=== PATIENT | male | born 1930 ===

== ENCOUNTER 2017-02-16 12:19 | Observation (INO) | payer MEDICAID, OTHER ==
[2017-02-16] MEDS ORDERED: Sodium Chloride 0.9% 1,000 ML IV STA (13:23)
[2017-02-16] MEDS ORDERED: Sodium Chloride 0.9% 1,000 ML ONE (13:29)
[2017-02-16] MEDS ORDERED: Morphine 4 MG/ML VIAL ONE ×2 (13:29→17:30)
[2017-02-16 13:54] LABS: BASO % 0.3 % (0.0-2.0); EOS # 0.1 K/uL (0.0-0.7); HEMATOCRIT 40.8 % (35.0-51.0); LYMPH # 0.3 K/uL (1.0-4.3); LYMPH % 5.7 % (20.0-40.0); MEAN CORPUSCULAR HEMOGLOBIN 29.6 pg (27.0-31.0); MEAN CORPUSCULAR HGB CONC 32.5 g/dL (33.0-37.0); MEAN PLATELET VOLUME 8.9 fL (7.2-11.7); MONO # 0.6 K/uL (0.0-0.8); MONO % 9.8 % (0.0-10.0); PLATELET COUNT 169 K/uL (130-400); RED CELL DISTRIBUTION WIDTH 13.9 % (11.5-14.5)
[2017-02-16 14:02] LABS: CHLORIDE 92 mmol/L (98-107); POTASSIUM 4.4 mmol/L (3.6-5.2); SODIUM 135 mmol/L (132-148)
[2017-02-16 14:04] LABS: GFR AFRICAN-AMERICAN > 60
[2017-02-16 14:05] LABS: ALB/GLOB RATIO 1.3 (1.0-2.1); ALKALINE PHOSPHATASE 59 U/L (38-126); ALT/SGPT 22 U/L (21-72); AST/SGOT 25 U/L (17-59); BILIRUBIN,TOTAL 0.7 mg/dL (0.2-1.3); BLOOD UREA NITROGEN 18 mg/dL (9-20); CALCIUM 8.7 mg/dl (8.6-10.4); CARBON DIOXIDE 31 mmol/L (22-30); GLUCOSE,RANDOM 107 mg/dL (75-110); TOTAL PROTEIN 6.6 g/dL (6.3-8.3)
--- NOTE | 2017-02-16 14:11 | C.PDOC ---
History Of Present Illness 86-year-old male, PMHx includes Prostate CA (s/p radiation therapy, diagnosed four years ago), and hypertension, presents to the emergency department with complaints of diffuse abdominal pain for the past four days. Pain is intermittent in nature, and described as "severe at times." Patient notes associated nausea w/ non-bilious/non-bloody vomiting. patient denies fevers, chills, shortness of breath, constipation, dysuria, or any other associated symptoms. Of note, family states patient has had this pain for many years, prior to diagnosis of prostate CA; Patient was evaluated in and told he has "inflamed intestines" and unknown "gallbladder problems"; Patient has never been diagnosed in the states. No other complaints at this time. Time Seen by Provider: 02/16/17 13:01 Chief Complaint (Nursing): Abdominal Pain History Per: Patient History/Exam Limitations: no limitations Current Symptoms Are (Timing): Still Present Severity: Moderate Location Of Pain/Discomfort: Diffuse Past Medical History Reviewed: Historical Data, Nursing Documentation, Vital Signs Vital Signs: Last Vital Signs Temp 97.7 F 02/16/17 12:22 Pulse 87 02/16/17 17:15 Resp 20 02/16/17 17:15 BP 141/71 02/16/17 17:15 Pulse Ox 100 02/16/17 17:15 - Medical History PMH: HTN Surgical History: Appendectomy, Tonsillectomy Family History: States: Unknown Family Hx - Social History Hx Alcohol Use: No Hx Substance Use: No - Immunization History Hx Tetanus Toxoid Vaccination: No Hx Influenza Vaccination: No Hx Pneumococcal Vaccination: No Review Of Systems Except As Marked, All Systems Reviewed And Found Negative. Constitutional: Negative for: Fever, Chills Cardiovascular: Negative for: Chest Pain, Palpitations Respiratory: Negative for: Cough, Shortness of Breath Gastrointestinal: Positive for: Vomiting, Abdominal Pain. Negative for: Diarrhea, Constipation Musculoskeletal: Negative for: Back Pain Skin: Negative for: Rash Neurological: Negative for: Weakness, Numbness, Headache, Dizziness Physical Exam - Physical Exam Additional Physical Exam Comments: Constitutional: No acute distress. Thin cachectic male. Head: Normocephalic. Atraumatic. Eyes: PERRL. EOMI ENT: Moist mucous membranes. Neck: Supple. Cardiovascular: Regular rate. Radial pulses 2+ bilaterally. Chest: No tenderness. Respiratory: Clear to auscultation bilaterally. GI: Soft. diffuse tenderness to palpation of abdomen. No rebound/guarding. Back: No CVA tenderness. No midline tenderness. Musculoskeletal: No tenderness or swelling of extremities. Skin: No rash. Neurologic: Alert, no focal deficit. ED Course And Treatment - Laboratory Results Result Diagrams: 02/16/17 13:49 02/16/17 13:49 O2 Sat by Pulse Oximetry: 100 Medical Decision Making Medical Decision Making: Plan: * CT Abd/Pel * CMP, Lipase * CBC * Morphine, IVF, Zofran * Urinalysis * Reassess and Disposition Accession No. : [id number] Patient Name / ID : CARLOS HARP / [id number] Exam Date : 02/16/2017 16:19:53 ( Approved ) Study Comment : Sex / Age : M / 86Y Creator : Naveed Aguiar Dictator : Naveed Aguiar Horse Stud Manager : Recreation Therapist : Naveed Aguiar Approver2 : Report Date : 02/16/2017 17:14:17 My Comment : PROCEDURE: CT Abdomen and Pelvis with contrast HISTORY: abd pain, vomiting COMPARISON: None. TECHNIQUE: Axial and reformatted coronal and sagittal CT images of the abdomen and pelvis were obtained after IV contrast administration. This CT exam was performed using one or more of the following dose reduction techniques: Automated exposure control, adjustment of the mA and/or kv according to patient size, and/or use of iterative reconstruction technique. Contrast dose: 100 mL of Visipaque. Radiation dose: Total exam DLP = 220.97 mGy-cm. FINDINGS: LOWER THORAX: Unremarkable. LIVER: Unremarkable. No gross lesion or ductal dilatation. GALLBLADDER AND BILE DUCTS: Unremarkable. PANCREAS: Unremarkable. No gross lesion or ductal dilatation. SPLEEN: Unremarkable. ADRENALS: Unremarkable. No mass. KIDNEYS AND URETERS: Unremarkable. No hydronephrosis. No solid mass. VASCULATURE: Unremarkable. No aortic aneurysm. BOWEL: Moderately dilated small bowel loops demonstrate diffuse enhancing wall thickening and contains air-fluid level suggestive of small bowel obstruction. The distal small bowel loops are collapsed. The large bowel is also partially collapse. The transitional point is not clear in this study. APPENDIX: There is no evidence of appendicitis. PERITONEUM: Small amount of free fluid in the abdomen and pelvis. LYMPH NODES: Unremarkable. No enlarged lymph nodes. BLADDER: Unremarkable. REPRODUCTIVE: Xozwcd-de-uuvdqagrpj enlarged prostate. BONES: No acute fracture. OTHER FINDINGS: None. IMPRESSION: Findings suggestive of small bowel obstruction. Moderately distended small bowel loops demonstrate enhancing thick wall. The distal small bowel loops are collapsed. Heterogeneous enhancement of the femoral veins especially on the left. Correlate clinically for possible DVT. Patient states he is constipated and had a bowel movement earlier today. Will keep on observation, Dr. Whitaker accepts to hospitalist service. Dr. Gannon consulted for General Surgery, surgical instruments inspector notified. Disposition - Disposition Disposition: HOSPITALIZED Disposition Time: 17:14 Condition: GUARDED - Clinical Impression Clinical Impression: Abdominal pain, Inflammation of intestines, Small bowel obstruction - Scribe Statement The provider has reviewed the documentation as recorded by the Sparkle Mari All medical record entries made by the Sparkle were at my direction and personally dictated by me. I have reviewed the chart and agree that the record accurately reflects my personal performance of the history, physical exam, medical decision making, and the department course for this patient. I have also personally directed, reviewed, and agree with the discharge instructions and disposition.
[2017-02-16 14:33] LABS: RBC URINE < 1 /hpf (0-3); URINE BILIRUBIN NEGATIVE (NEGATIVE); URINE BLOOD NEGATIVE (NEGATIVE); URINE COLOR Yellow (YELLOW); URINE GLUCOSE (UA) NORMAL (Normal); URINE KETONE TRACE mg/dL (NEGATIVE); URINE LEUKOCYTE ESTERASE NEG Leu/uL (Negative); URINE PROTEIN NEGATIVE (NEGATIVE); WBC URINE 2 /hpf (0-5)
[2017-02-16 14:42] LABS: EOSINOPHIL 2 % (0-4); NEUTROPHIL 77 % (50-75); REACTIVE LYMPHOCYTES 2 % (0-0); TOTAL CELLS COUNTED 100
[2017-02-16] MEDS ORDERED: Iodixanol 320 MG/ML 100 ML BOTTLE IV ONE (16:02)
--- NOTE | 2017-02-16 17:15 | CT ---
PROCEDURE: CT Abdomen and Pelvis with contrast HISTORY: abd pain, vomiting COMPARISON: None. TECHNIQUE: Axial and reformatted coronal and sagittal CT images of the abdomen and pelvis were obtained after IV contrast administration. This CT exam was performed using one or more of the following dose reduction techniques: Automated exposure control, adjustment of the mA and/or kv according to patient size, and/or use of iterative reconstruction technique. Contrast dose: 100 mL of Visipaque. Radiation dose: Total exam DLP = 220.97 mGy-cm. FINDINGS: LOWER THORAX: Unremarkable. LIVER: Unremarkable. No gross lesion or ductal dilatation. GALLBLADDER AND BILE DUCTS: Unremarkable. PANCREAS: Unremarkable. No gross lesion or ductal dilatation. SPLEEN: Unremarkable. ADRENALS: Unremarkable. No mass. KIDNEYS AND URETERS: Unremarkable. No hydronephrosis. No solid mass. VASCULATURE: Unremarkable. No aortic aneurysm. BOWEL: Moderately dilated small bowel loops demonstrate diffuse enhancing wall thickening and contains air-fluid level suggestive of small bowel obstruction. The distal small bowel loops are collapsed. The large bowel is also partially collapse. The transitional point is not clear in this study. APPENDIX: There is no evidence of appendicitis. PERITONEUM: Small amount of free fluid in the abdomen and pelvis. LYMPH NODES: Unremarkable. No enlarged lymph nodes. BLADDER: Unremarkable. REPRODUCTIVE: Cwidmq-nu-lhzhiamppy enlarged prostate. BONES: No acute fracture. OTHER FINDINGS: None. IMPRESSION: Findings suggestive of small bowel obstruction. Moderately distended small bowel loops demonstrate enhancing thick wall. The distal small bowel loops are collapsed. Heterogeneous enhancement of the femoral veins especially on the left. Correlate clinically for possible DVT.
--- NOTE | 2017-02-16 17:49 | CP.PCM.HP ---
<Viktoriya Carballo - Last Filed: 02/16/17 19:00> History of Present Illness - History of Present Illness History of Present Illness: CC: stomach pain since HPI: 86-year-old male, PMHx includes prostate ca [s/p radiation therapy 4 years ago] and HTN, presents to the emergency department with complaints of diffuse abdominal pain for the past four days. Pain is intermittent in nature, and described as "severe at times" at its worst a 10/10. Patient describes the pain as cramping and intermittent without radiation to the back and it started when he was lying down. He reports associated nausea and vomiting. He had nonbloody nonbilious emesis 3 x this morning. Patient reports tramadol 50mg makes the pain better and he cannot pinpoint any inciting factors. Patient has been seen in the DR 4 years ago for similar pain and was told he had "inflamed intestines ". He also had an evaluation of his gallbladder 5-6 months ago which showed stones and his physician told him he needed surgery. Patient's last meal was yesterday at 4pm and he did not eat after that secondary to pain. Patient's last BM was this morning at 11am which was small but nonbloody and nonmelanotic. Patient has BMs every 3-4 days. Patient is travelling from the and got [place] the [place]. Patient deneis any sick contacts. Patient denied any fever, chills, weakness, chest pain, palpitations, shortness of breath, cough. Patient is complaining headaches, dizziness, sore throat, abd pain, nausea, vomiting, urinary frequency, constipation, pain and numbness and tingling in his legs bilaterally and numbness in his penis when he walks, and weight loss. PMD: in DR- hasn't seen PMD in 3 years PMHx: prostate ca [s/p radiation therapy 4 years ago] and HTN Meds: lisinopril 20mg po daily, tramadol 50mg PRN pain, Divine Penningtonlan ALL: Penicillin PSurg: appendectomy 25 years ago, tonsillectomy 10 years ago, b/l inguinal hernia repair 8 years ago Colonoscopy Hx: 1995 showed no polyps PHospitalizations: denies FamHx: [place] from [place] at age 75. [facility] 50 [facility] denies [facility], smoking, drugs. lives in with . used to work as a cabinetmaker helper ROS: Patient denied any fever, chills, weakness, chest pain, palpitations, shortness of breath, cough. Patient is complaining headaches, dizziness, sore throat, abd pain, nausea, vomiting, urinary frequency, constipation, pain and numbness and tingling in his legs bilaterally and numbness in his penis when he walks, and weight loss. ED: CT abd/pelvis suggesting SBO. Moderately distended small bowel loops demonstrating enhanced thick wall. Distal small bowel loops are collapsed. Heterogenous enhancement of femoral veins especially on left. Correlate clinically for possible DVT Surgery Dr. Gannon consulted Present on Admission - Present on Admission Any Indicators Present on Admission: No Review of Systems - Constitutional Constitutional: As Per HPI, Headache. absent: Chills, Fever - EENT Eyes: As Per HPI. absent: Blurred Vision Ears: As Per HPI, Dizziness Nose/Mouth/Throat: As Per HPI, Sore Throat - Cardiovascular Cardiovascular: As Per HPI. absent: Chest Pain, Dyspnea, Dyspnea on Exertion, Edema, Leg Edema - Respiratory Respiratory: As Per HPI. absent: Cough, Dyspnea, Chest Congestion - Gastrointestinal Gastrointestinal: As Per HPI, Abdominal Pain, Constipation, Cramping, Nausea, Vomiting. absent: Change in Bowel Habits, Coffee Ground Emesis, Diarrhea, Dysphagia, Excessive Flatus, Hematemesis, Hematochezia, Loose Stools, Melena - Genitourinary Genitourinary: As Per HPI. absent: Dysuria - Musculoskeletal Musculoskeletal: As Per HPI, Back Pain, Muscle Weakness, Numbness, Tingling. absent: Muscle Cramps - Integumentary Integumentary: As Per HPI. absent: Pruritus, Rash - Neurological Neurological: As Per HPI, Numbness, Tingling - Psychiatric Psychiatric: As Per HPI. absent: Anxiety, Depression - Endocrine Endocrine: As Per HPI. absent: Polydipsia, Polyphagia, Polyuria - Hematologic/Lymphatic Hematologic: As Per HPI. absent: Easy Bleeding, Easy Bruising Past Patient History - Infectious Disease Hx of Infectious Diseases: None - Past Social History Smoking Status: Never Smoked - CARDIAC Hx Hypertension: Yes - HEENT Hx Glaucoma: Yes (b/l) - HEMATOLOGICAL/ONCOLOGICAL Hx Cancer: Yes (Prostate CA with radiation) - PSYCHIATRIC Hx Substance Use: No - SURGICAL HISTORY Hx Appendectomy: Yes Hx Tonsillectomy: Yes - ANESTHESIA Hx Anesthesia: Yes Hx Anesthesia Reactions: No Meds Allergies/Adverse Reactions: Allergies Allergy/AdvReac Type Severity Reaction Status Date / Time Penicillins Allergy Severe SWELLING Verified 02/16/17 19:58 Physical Exam - Constitutional Appears: Non-toxic, No Acute Distress, Cachectic, Chronically Ill - Head Exam Head Exam: ATRAUMATIC, NORMAL INSPECTION, NORMOCEPHALIC - Eye Exam Eye Exam: Normal appearance. absent: Conjunctival injection, Scleral icterus - ENT Exam ENT Exam: Mucous Membranes Dry - Neck Exam Neck exam: Positive for: Normal Inspection. Negative for: Lymphadenopathy - Respiratory Exam Respiratory Exam: Clear to Auscultation Bilateral, NORMAL BREATHING PATTERN. absent: Accessory Muscle Use, Rales, Rhonchi, Wheezes, Respiratory Distress - Cardiovascular Exam Cardiovascular Exam: REGULAR RHYTHM, RRR, +S1, +S2. absent: Systolic Murmur - GI/Abdominal Exam GI & Abdominal Exam: Normal Bowel Sounds, Soft, Tenderness (diffuse). absent: Distended, Firm, Guarding, Hernia, Rigid - Extremities Exam Extremities exam: Positive for: normal capillary refill, normal inspection, pedal pulses present. Negative for: pedal edema - Back Exam Back exam: NORMAL INSPECTION. absent: rash noted - Neurological Exam Neurological exam: Alert, Oriented x3 - Psychiatric Exam Psychiatric exam: Normal Affect, Normal Mood - Skin Skin Exam: Dry, Intact, Normal Color, Warm Results - Vital Signs Recent Vital Signs: Last Vital Signs Temp 97.7 F 02/16/17 12:22 Pulse 87 02/16/17 17:15 Resp 20 02/16/17 17:15 BP 141/71 02/16/17 17:15 Pulse Ox 100 02/16/17 17:15 - Labs Result Diagrams: 02/16/17 13:49 02/16/17 13:49 Labs: Laboratory Results - last 24 hr 02/16/17 02/16/17 13:49 14:19 WBC 6.0 RBC 4.49 Hgb 13.3 Hct 40.8 MCV 91.0 MCH 29.6 MCHC 32.5 L RDW 13.9 Plt Count 169 MPV 8.9 Neut % (Auto) 83.2 H Lymph % (Auto) 5.7 L Price % (Auto) 9.8 Eos % (Auto) 1.0 Baso % (Auto) 0.3 Neut # 5.0 Lymph # 0.3 L Price # 0.6 Eos # 0.1 Baso # 0.0 Neutrophils % (Manual) 77 H Band Neutrophils % 4 H Lymphocytes % (Manual) 9 L Reactive Lymphs % 2 H Monocytes % (Manual) 6 Eosinophils % (Manual) 2 Platelet Estimate Normal RBC Morphology Normal Sodium 135 Potassium 4.4 Chloride 92 L Carbon Dioxide 31 H Anion Gap 16 BUN 18 Creatinine 0.8 Est GFR ( Amer) > 60 Est GFR (Non-Af Amer) > 60 Random Glucose 107 Calcium 8.7 Total Bilirubin 0.7 AST 25 ALT 22 Alkaline Phosphatase 59 Total Protein 6.6 Albumin 3.8 Globulin 2.9 Albumin/Globulin Ratio 1.3 Lipase 34 Urine Color Yellow Urine Clarity Clear Urine pH 7.0 Ur Specific Tuttle 1.019 Urine Protein Negative Urine Glucose (UA) Normal Urine Ketones Trace Urine Blood Negative Urine Nitrate Negative Urine Bilirubin Negative Urine Urobilinogen 2.0 Ur Leukocyte Esterase Neg Urine WBC (Auto) 2 Urine RBC (Auto) < 1 Ur Squamous Epith Cells 3 Assessment & Plan - Assessment and Plan (Free Text) Assessment: 86 yo male PMHx pancreatic ca and HTN presenting with abdominal pain for 4 days Plan: Abdominal pain rule out SBO CT abd/pelvis suggesting SBO. Moderately distended small bowel loops demonstrating enhanced thick wall. Distal small bowel loops are collapsed. Heterogenous enhancement of femoral veins especially on left. Correlate clinically for possible DVT patient NPO NS @ 100cc/hr Reglan 10mg IVP Q6H f/u AM Labs f/u tumor markers f/u baseline CXR and EKG Surgery Dr. Gannon consulted HTN Hydralazine 10mg IVP Q6H if systolic BP > 160 Hx of Prostate ca f/u PSA r/o DVT f/u venous dopplers b/l f/u D-dimer PPX Protonix 40mg IVP daily Heparin 5000U SC Q8 SCDs NPO Plan discussed with Dr. Sherman Carballo PGY1 <Alexandra Whitaker V - Last Filed: 02/16/17 20:40> Results - Vital Signs Recent Vital Signs: Last Vital Signs Temp 98.7 F 02/16/17 19:54 Pulse 75 02/16/17 19:54 Resp 20 02/16/17 19:54 BP 139/74 02/16/17 19:54 Pulse Ox 96 02/16/17 19:54 - Labs Result Diagrams: 02/16/17 13:49 02/16/17 13:49 Labs: Laboratory Results - last 24 hr 02/16/17 02/16/17 02/16/17 13:49 14:19 19:15 WBC 6.0 RBC 4.49 Hgb 13.3 Hct 40.8 MCV 91.0 MCH 29.6 MCHC 32.5 L RDW 13.9 Plt Count 169 MPV 8.9 Neut % (Auto) 83.2 H Lymph % (Auto) 5.7 L Price % (Auto) 9.8 Eos % (Auto) 1.0 Baso % (Auto) 0.3 Neut # 5.0 Lymph # 0.3 L Price # 0.6 Eos # 0.1 Baso # 0.0 Neutrophils % (Manual) 77 H Band Neutrophils % 4 H Lymphocytes % (Manual) 9 L Reactive Lymphs % 2 H Monocytes % (Manual) 6 Eosinophils % (Manual) 2 Platelet Estimate Normal RBC Morphology Normal D-Dimer, Quantitative < 200 Sodium 135 Potassium 4.4 Chloride 92 L Carbon Dioxide 31 H Anion Gap 16 BUN 18 Creatinine 0.8 Est GFR ( Amer) > 60 Est GFR (Non-Af Amer) > 60 Random Glucose 107 Calcium 8.7 Total Bilirubin 0.7 AST 25 ALT 22 Alkaline Phosphatase 59 Total Protein 6.6 Albumin 3.8 Globulin 2.9 Albumin/Globulin Ratio 1.3 Lipase 34 Urine Color Yellow Urine Clarity Clear Urine pH 7.0 Ur Specific Tuttle 1.019 Urine Protein Negative Urine Glucose (UA) Normal Urine Ketones Trace Urine Blood Negative Urine Nitrate Negative Urine Bilirubin Negative Urine Urobilinogen 2.0 Ur Leukocyte Esterase Neg Urine WBC (Auto) 2 Urine RBC (Auto) < 1 Ur Squamous Epith Cells 3 Assessment & Plan (1) Small bowel obstruction Status: Suspected Comment: CT Abdomen/Pelvis IV (02/16/17): findings suggesitve of small bowel obstruction. Moderatel distended small bowel loops demonstrate enhancing thick wall. Distal small bowel loops are collapsed. Heterogenous enhance of the femoral veins larry on the left. Correlate clinically for possible DVT. General surgery (Dr. Gannon) on board-->notified. NPO except medications. Reglan 10mg IV Q 6hour scheduled. Risk factors: prior abdominal surgery, hx of bilateral inguinal hernias, and prostate cancer. Patient had a bowel movement this morning. Patient does not appear grossly distended. Surgery to determine if needs NGT tube or to observe. Patient is not actively throwing up. Ordered for baseline chest xray and baseline EKG (2) Abdominal pain Status: Acute Comment: See small bowel obstruction. CT Abdomen/Pelvis IV (02/16/17): findings suggesitve of small bowel obstruction. Moderatel distended small bowel loops demonstrate enhancing thick wall. Distal small bowel loops are collapsed. Heterogenous enhance of the femoral veins larry on the left. Correlate clinically for possible DVT. Patient ordered for CEA, alphafetaprotein, CA-125, and PSA. Patient's prior colonoscopy in 1995, which he reports was normal. Patient has not followed up with GI. (3) Prostate cancer Status: Chronic Comment: Patient has prior history of prostate cancer. Had discontinued radiation for prostate cancer given side effects; patient reports became as low as 70 something pounds. Patient has not follow-up with urologist since nor had a follow-up PSA. Patient ordered for PSA for the AM. Patient has only had radiation and reports prior shaving of the prostate. Per CT scan, mild to moderate enlarged prostate. (4) Hypertension Status: Chronic Comment: Patient reports he takes Lisinopril 20mg PO daily. Patient is currently NPO except for IV medications. Patient started on Hydralazine 10mg IV Q 6hours PRN SBP>160 (5) DVT (deep venous thrombosis) Status: Suspected Comment: CT Abdomen/Pelvis IV (02/16/17): findings suggesitve of small bowel obstruction. Moderately distended small bowel loops demonstrate enhancing thick wall. Distal small bowel loops are collapsed. Heterogenous enhance of the femoral veins larry on the left. Correlate clinically for possible DVT. ordered for venous doppler lower extremity (6) Prophylactic measure Status: Acute Comment: Contraindications for scds until DVT is ruled out: patient clinically does not appear to have DVT; however in light of prostate cancer hx will rule out DVT. Lower venous dopplers ordered for r/o DVT. Ordered for d-dimer. Protonix 40mg IV q daily for GI ppx Attending/Attestation - Attestation I have personally seen and examined this patient.: Yes I have fully participated in the care of the patient.: Yes I have reviewed all pertinent clinical information: Yes Notes (Text): Patient seen, examined in [facility] Bed 10 at 6:40PM with resident on 02/16/17; with patient and patient's and daughter present. Patient has history of HTN, and prostate cancer, unknown keyla score, requiring radiation which was stopped by the patient due to intolerable side effects. Patient reports abdominal pain since , generalize abdominal which is sharp, does not want to eat in spite of the pain, and reports has had associated nausea and/or vomitting. Patient accompanied by his reports he had a small bowel movement today. Patient denies association with food but reports he does not want to eat because of the pain. Patient has not seen PMD in 3 years. Patient does not have urology followup given history of prostate cancer. Reviewed CT scan with resident. General surgery consulted ordered and to determine if NGT tube placement is warranted; given patient has had flatus and bowel movement early today. Patient reports baseline bowel movement is constipation prior to going every 3 days. patient is on tramadol for pain, but unclear about etiology of pain. Discussed admitting orders with day-time resident. General surgery consult on board help appreciated. Assessment/Plan 1) Small bowel obstruction 2) History of Prostate cancer 3) history of hypertension 4) Abnormal CT finding r/o DVT Please refer to assessment/plan in body of H&P for further details.
[2017-02-16] MEDS: Sodium Chloride 0.9% 1,000 ML IV SCH (19:48)
--- NOTE | 2017-02-16 20:54 | CP.PCM.CON ---
History of Present Illness - History of Present Illness History of Present Illness: General Surgery Consult Re: Possible SBO HPI: 86M presented to ED C/O abdominal pain x 4 days. Pain is crampy and intermittent, and he came in due to it progressively getting worse. + NBNB emesis today x 2. Tramadol 50mg makes the pain better. Patient has been seen in the [place] 4 years ago for similar pain and was told he had "inflamed intestines". Last meal was yesterday at 4pm secondary to pain. Last BM at 11am was normal, small but nonbloody. Has BMs every 3 days. Denied F/C, weakness, chest pain, SOB. Currently denies any N/V. + dizziness, urinary frequency, constipation, and mild weight loss. PMH: HTN, prostate CA treated with radiation PSH: appendectomy, b/l inguinal hernia repair, tonsillectomy SH: No tobacco, EtOH, or drug use All: PCN Meds: See MAR Review of Systems - Review of Systems All systems: reviewed and no additional remarkable complaints except (as per HPI ) Past Patient History - Infectious Disease Hx of Infectious Diseases: None - Past Social History Smoking Status: Never Smoked - CARDIAC Hx Hypertension: Yes - HEENT Hx Glaucoma: Yes (b/l) - HEMATOLOGICAL/ONCOLOGICAL Hx Cancer: Yes (Prostate CA with radiation) - PSYCHIATRIC Hx Substance Use: No - SURGICAL HISTORY Hx Appendectomy: Yes Hx Tonsillectomy: Yes - ANESTHESIA Hx Anesthesia: Yes Hx Anesthesia Reactions: No Meds Allergies/Adverse Reactions: Allergies Allergy/AdvReac Type Severity Reaction Status Date / Time Penicillins Allergy Severe SWELLING Verified 02/16/17 19:58 - Medications Medications: Current Medications Heparin Sodium (Porcine) (Heparin) 5,000 units SC Q8 [facility] Hydralazine HCl (Apresoline) 10 mg IVP Q6H [facility] Last Admin: 02/16/17 19:49 Dose: Not Given Sodium Chloride (Sodium Chloride 0.9%) 1,000 mls @ 100 mls/hr IV .Q10H [facility] Last Admin: 02/16/17 19:48 Dose: 100 mls/hr Metoclopramide HCl (Reglan) 10 mg IVP Q6H [facility] Last Admin: 02/16/17 19:48 Dose: 10 mg Pantoprazole Sodium (Protonix Inj) 40 mg IVP DAILY [facility] Last Admin: 02/16/17 19:14 Dose: 40 mg Physical Exam - Constitutional Appears: Non-toxic, No Acute Distress - Head Exam Head Exam: ATRAUMATIC, NORMOCEPHALIC - Eye Exam Eye Exam: EOMI. absent: Scleral icterus - ENT Exam ENT Exam: Mucous Membranes Dry Additional comments: trachea midline - Respiratory Exam Respiratory Exam: NORMAL BREATHING PATTERN. absent: Respiratory Distress - Cardiovascular Exam Cardiovascular Exam: RRR, +S1, +S2 - GI/Abdominal Exam GI & Abdominal Exam: Guarding, Soft, Tenderness (generalized but worse in lower quadrants). absent: Distended, Firm, Rebound, Rigid - Rectal Exam Rectal Exam: Deferred - Extremities Exam Extremities exam: Negative for: calf tenderness, pedal edema - Back Exam Back exam: absent: CVA tenderness (L), CVA tenderness (R) - Neurological Exam Neurological exam: Alert, Reflexes Normal - Psychiatric Exam Psychiatric exam: Normal Affect, Normal Mood - Skin Skin Exam: Dry, Warm Results - Vital Signs Recent Vital Signs: Last Vital Signs Temp 98.7 F 02/16/17 19:54 Pulse 75 02/16/17 19:54 Resp 20 02/16/17 19:54 BP 139/74 02/16/17 19:54 Pulse Ox 96 02/16/17 19:54 - Labs Result Diagrams: 02/16/17 13:49 02/16/17 13:49 Labs: Laboratory Results - last 24 hr 02/16/17 02/16/17 02/16/17 13:49 14:19 19:15 WBC 6.0 RBC 4.49 Hgb 13.3 Hct 40.8 MCV 91.0 MCH 29.6 MCHC 32.5 L RDW 13.9 Plt Count 169 MPV 8.9 Neut % (Auto) 83.2 H Lymph % (Auto) 5.7 L Pender % (Auto) 9.8 Eos % (Auto) 1.0 Baso % (Auto) 0.3 Neut # 5.0 Lymph # 0.3 L Pender # 0.6 Eos # 0.1 Baso # 0.0 Neutrophils % (Manual) 77 H Band Neutrophils % 4 H Lymphocytes % (Manual) 9 L Reactive Lymphs % 2 H Monocytes % (Manual) 6 Eosinophils % (Manual) 2 Platelet Estimate Normal RBC Morphology Normal D-Dimer, Quantitative < 200 Sodium 135 Potassium 4.4 Chloride 92 L Carbon Dioxide 31 H Anion Gap 16 BUN 18 Creatinine 0.8 Est GFR ( Amer) > 60 Est GFR (Non-Af Amer) > 60 Random Glucose 107 Calcium 8.7 Total Bilirubin 0.7 AST 25 ALT 22 Alkaline Phosphatase 59 Total Protein 6.6 Albumin 3.8 Globulin 2.9 Albumin/Globulin Ratio 1.3 Lipase 34 Urine Color Yellow Urine Clarity Clear Urine pH 7.0 Ur Specific Kelly 1.019 Urine Protein Negative Urine Glucose (UA) Normal Urine Ketones Trace Urine Blood Negative Urine Nitrate Negative Urine Bilirubin Negative Urine Urobilinogen 2.0 Ur Leukocyte Esterase Neg Urine WBC (Auto) 2 Urine RBC (Auto) < 1 Ur Squamous Epith Cells 3 - Imaging and Cardiology CT scan - abdomen Status: Image reviewed by me, Report reviewed by me Assessment & Plan - Assessment and Plan (Free Text) Assessment: 86M with possible SBO likely 2/2 adhesions from radiation therapy vs surgery Plan: NPO IVF Analgesia Place NGT if pt has any further N/V Monitor for BM D/W Dr. Jagdeep Cevallos PGY3
[2017-02-16] MEDS ORDERED: Morphine 4 MG/ML VIAL IVP PRN (21:17)
[2017-02-17] MEDS: Sodium Chloride 0.9% 1,000 ML IV SCH ×2 (05:00→19:04)
[2017-02-17 07:31] LABS: BASO % 0.2 % (0.0-2.0); EOS % 0.4 % (0.0-4.0); HEMATOCRIT 36.9 % (35.0-51.0); LYMPH # 0.5 K/uL (1.0-4.3); LYMPH % 9.6 % (20.0-40.0); MEAN CELL VOLUME 90.6 fL (80.0-94.0); MEAN CORPUSCULAR HEMOGLOBIN 29.8 pg (27.0-31.0); MEAN CORPUSCULAR HGB CONC 32.8 g/dL (33.0-37.0); MEAN PLATELET VOLUME 9.3 fL (7.2-11.7); MONO # 0.8 K/uL (0.0-0.8); MONO % 13.8 % (0.0-10.0); PLATELET COUNT 163 K/uL (130-400); WHITE BLOOD COUNT 5.5 K/uL (4.8-10.8)
[2017-02-17 07:52] LABS: CHLORIDE 95 mmol/L (98-107); SODIUM 132 mmol/L (132-148)
[2017-02-17 07:53] LABS: POTASSIUM 4.1 mmol/L (3.6-5.2)
[2017-02-17 07:55] LABS: ALB/GLOB RATIO 1.4 (1.0-2.1); ALKALINE PHOSPHATASE 58 U/L (38-126); ALT/SGPT 20 U/L (21-72); AST/SGOT 21 U/L (17-59); BILIRUBIN,TOTAL 0.7 mg/dL (0.2-1.3); BLOOD UREA NITROGEN 12 mg/dL (9-20); CARBON DIOXIDE 26 mmol/L (22-30); GFR AFRICAN-AMERICAN > 60; GLUCOSE,RANDOM 100 mg/dL (75-110); PHOSPHOROUS 3.4 mg/dL (2.5-4.5); TOTAL PROTEIN 5.9 g/dL (6.3-8.3)
[2017-02-17 07:56] LABS: CALCIUM 7.9 mg/dl (8.6-10.4); MAGNESIUM 1.9 mg/dL (1.6-2.3)
[2017-02-17 08:23] LABS: CARCINOEMBRYONIC ANTIGEN 1.3 ng/mL (0-3.0); PROSTATE SPECIFIC ANTIGEN 3.97 ng/mL (0.00-4.0)
[2017-02-17 08:27] LABS: CA 19-9 24.7 U/mL (0-37)
--- NOTE | 2017-02-17 08:43 | RAD ---
HISTORY: baseline COMPARISON: No prior. FINDINGS: LUNGS: Hyperinflation of the lung woods suggestive for emphysematous changes and or COPD. Biapical pleural thickening with upper lobe granulomatous changes. No focal infiltrate or effusion. Mild right hilar prominence. PLEURA: No significant pleural effusion identified, no pneumothorax apparent. CARDIOVASCULAR: Normal. OSSEOUS STRUCTURES: No significant abnormalities. VISUALIZED UPPER ABDOMEN: Normal. OTHER FINDINGS: None. IMPRESSION: Hyperinflation of the lung woods suggestive for emphysematous changes and or COPD. Biapical pleural thickening with upper lobe granulomatous changes. No focal infiltrate or effusion. Mild right hilar prominence.
[2017-02-17 09:34] LABS: EOSINOPHIL 2 % (0-4); NEUTROPHIL 69 % (50-75); TOTAL CELLS COUNTED 100
--- NOTE | 2017-02-17 09:52 | CP.PCM.PN ---
Subjective - Date & Time of Evaluation Date of Evaluation: 02/17/17 Time of Evaluation: 09:48 - Subjective Subjective: General Surgery Dr. Gannon Pt S&E @bedside. NAEO. Dutch speaking. admits to diffuse abd pain though improved from admission. denies F/C, N/V. (-) BM/Flatus. NPO. Objective - Vital Signs/Intake and Output Vital Signs (last 24 hours): Temp Pulse Resp BP Pulse Ox 98.3 F 97 H 20 137/72 97 02/17/17 05:30 02/17/17 05:30 02/17/17 05:30 02/17/17 05:30 02/17/17 05:30 Intake and Output: 02/17/17 02/17/17 06:59 18:59 Intake Total 1150 Output Total 500 Balance 650 - Medications Medications: Current Medications Heparin Sodium (Porcine) (Heparin) 5,000 units SC Q8 [facility] Last Admin: 02/17/17 05:10 Dose: 5,000 units Hydralazine HCl (Apresoline) 10 mg IVP Q6H [facility] Last Admin: 02/17/17 06:35 Dose: 10 mg Sodium Chloride (Sodium Chloride 0.9%) 1,000 mls @ 100 mls/hr IV .Q10H [facility] Last Admin: 02/17/17 05:00 Dose: 100 mls/hr Metoclopramide HCl (Reglan) 10 mg IVP Q6H [facility] Last Admin: 02/17/17 06:35 Dose: 10 mg Morphine Sulfate (Morphine) 4 mg IVP Q4 PRN PRN Reason: Pain, moderate (4-7) Pantoprazole Sodium (Protonix Inj) 40 mg IVP DAILY [facility] Last Admin: 02/16/17 19:14 Dose: 40 mg Pneumococcal Polyvalent Vaccine (Pneumovax 23 Vaccine) 0.5 ml IM .ONCE ONE Stop: 02/18/17 10:01 - Labs Labs: 02/17/17 07:24 02/17/17 07:24 - Constitutional Appears: Non-toxic, No Acute Distress - Head Exam Head Exam: NORMAL INSPECTION - Eye Exam Eye Exam: Normal appearance - ENT Exam ENT Exam: Mucous Membranes Moist - Respiratory Exam Respiratory Exam: NORMAL BREATHING PATTERN. absent: Accessory Muscle Use, Respiratory Distress - GI/Abdominal Exam GI & Abdominal Exam: Soft. absent: Distended, Firm, Guarding, Rigid, Tenderness , Rebound - Extremities Exam Extremities Exam: Normal Inspection - Neurological Exam Neurological Exam: Alert, Awake, Oriented x3 - Psychiatric Exam Psychiatric exam: Normal Affect, Normal Mood - Skin Skin Exam: Dry, Intact, Normal Color, Warm Assessment and Plan - Assessment and Plan (Free Text) Assessment: 86 y/o M w/ possible SBO likely 2/2 adhesions from radiation therapy vs surgery - cont NPO - cont IVF - pain management - cont anti-emetic - NGT if N/V - Monitor for BM Pt discussed w/ Dr. Jagdeep Jeffers DO PGY1
--- NOTE | 2017-02-17 13:25 | CP.PCM.PN ---
<Kristen Wilcox - Last Filed: 02/17/17 13:18> Subjective - Date & Time of Evaluation Date of Evaluation: 02/17/17 Time of Evaluation: 07:40 - Subjective Subjective: PGY [address] Shaffer: Patient seen and examined at bedside this morning. He reports that his abdominal pain has resolved. He denies nausea or vomiting since yesterday. His family is at bedside and report that he had a small BM yesterday. He states that he is hungry and would like to eat. [place]. He has a history of prostate cancer and follows up with his doctor in [place]. Objective - Vital Signs/Intake and Output Vital Signs (last 24 hours): Temp Pulse Resp BP Pulse Ox 98.5 F 101 H 20 104/55 L 98 02/17/17 07:30 02/17/17 07:30 02/17/17 07:30 02/17/17 07:30 02/17/17 07:30 Intake and Output: 02/17/17 02/17/17 06:59 18:59 Intake Total 1150 Output Total 500 Balance 650 - Medications Medications: Current Medications Heparin Sodium (Porcine) (Heparin) 5,000 units SC Q8 [facility] Last Admin: 02/17/17 05:10 Dose: 5,000 units Hydralazine HCl (Apresoline) 10 mg IVP Q6H [facility] Last Admin: 02/17/17 06:35 Dose: 10 mg Sodium Chloride (Sodium Chloride 0.9%) 1,000 mls @ 100 mls/hr IV .Q10H [facility] Last Admin: 02/17/17 05:00 Dose: 100 mls/hr Metoclopramide HCl (Reglan) 10 mg IVP Q6H [facility] Last Admin: 02/17/17 06:35 Dose: 10 mg Morphine Sulfate (Morphine) 4 mg IVP Q4 PRN PRN Reason: Pain, moderate (4-7) Pantoprazole Sodium (Protonix Inj) 40 mg IVP DAILY [facility] Last Admin: 02/17/17 11:14 Dose: 40 mg Pneumococcal Polyvalent Vaccine (Pneumovax 23 Vaccine) 0.5 ml IM .ONCE ONE Stop: 02/18/17 10:01 - Labs Labs: 02/17/17 07:24 02/17/17 07:24 - Constitutional Appears: Non-toxic, No Acute Distress, Cachectic - Head Exam Head Exam: ATRAUMATIC, NORMAL INSPECTION - Eye Exam Eye Exam: EOMI, Normal appearance, PERRL Pupil Exam: NORMAL ACCOMODATION - Neck Exam Neck Exam: Normal Inspection - Respiratory Exam Respiratory Exam: Clear to Ausculation Bilateral, NORMAL BREATHING PATTERN. absent: Respiratory Distress - Cardiovascular Exam Cardiovascular Exam: REGULAR RHYTHM, +S1, +S2 - GI/Abdominal Exam GI & Abdominal Exam: Soft, Normal Bowel Sounds. absent: Distended, Firm, Guarding, Tenderness - Extremities Exam Extremities Exam: Normal Inspection. absent: Calf Tenderness, Pedal Edema - Back Exam Back Exam: CVA tenderness (L), NORMAL INSPECTION. absent: CVA tenderness (R), paraspinal tenderness - Neurological Exam Neurological Exam: Alert, Awake, CN II-XII Intact, Oriented x3 - Psychiatric Exam Psychiatric exam: Normal Affect, Normal Mood - Skin Skin Exam: Dry, Intact, Normal Color, Warm Assessment and Plan - Assessment and Plan (Free Text) Assessment: Small bowel obstruction Status: Suspected Comment: N/v and abdominal pain have resolved today. Patient and family report small BM yesterday He has been NPO , will advance diet to clear liquids and see how he tolerates CT Abdomen/Pelvis IV (02/16/17): findings suggesitve of small bowel obstruction. Moderatel distended small bowel loops demonstrate enhancing thick wall. Distal small bowel loops are collapsed. Heterogenous enhance of the femoral veins larry on the left. General surgery (Dr. Gannon) on board-->notified. NPO except medications. Reglan 10mg IV Q 6hour scheduled. Risk factors: prior abdominal surgery, hx of bilateral inguinal hernias, and prostate cancer. Patient had a bowel movement this morning. Patient does not appear grossly distended. Surgery to determine if needs NGT tube or to observe. Patient is not actively throwing up. Ordered for baseline chest xray and baseline EKG. Patient's prior colonoscopy in 1995, which he reports was normal. Prostate cancer Status: Chronic Comment: Patient has prior history of prostate cancer. Had discontinued radiation for prostate cancer given side effects; patient reports became as low as 70 something pounds. Patient has not follow-up with urologist since nor had a follow-up PSA. Patient has only had radiation and reports prior shaving of the prostate [address] scan, mild to moderate enlarged prostate. He follows up with his doctor in the [place]. He is here visitng family. Hypertension Status: Chronic Comment: Controlled Resume Lisinopril 20mg PO daily tomorrow, was held because patient was NPO Hydralazine 10mg IV Q 6hours PRN SBP>160 DVT (deep venous thrombosis) - ruled out Status: Suspected Comment: CT Abdomen/Pelvis IV (02/16/17): findings suggesitve of small bowel obstruction. Moderately distended small bowel loops demonstrate enhancing thick wall. Distal small bowel loops are collapsed. Heterogenous enhance of the femoral veins larry on the left. Correlate clinically for possible DVT. DDimer wnl Venous dopplers lower extremity - negative for thrombus Prophylactic measure Status: Acute Comment: SCDs Protonix 40mg IV q daily for GI ppx <Spencer Shaffer - Last Filed: 03/22/17 18:02> Objective - Vital Signs/Intake and Output Vital Signs (last 24 hours): Temp Pulse Resp BP Pulse Ox 98.2 F 76 20 130/57 L 99 02/18/17 16:00 02/18/17 16:00 02/18/17 16:00 02/18/17 16:00 02/18/17 16:00 - Labs Labs: 02/18/17 07:28 02/18/17 07:28 Attending/Attestation - Attestation I have personally seen and examined this patient.: Yes I have fully participated in the care of the patient.: Yes I have reviewed all pertinent clinical information, including history, physical exam and plan: Yes Notes (Text): Patient seen and examined with the resident. Agree with the resident's evaluation, assessment and plan. Small bowel obstruction Status: Suspected Comment: N/v and abdominal pain have resolved today. Patient and family report small BM yesterday He has been NPO , will advance diet to clear liquids and see how he tolerates
[2017-02-18] MEDS: Sodium Chloride 0.9% 1,000 ML IV SCH ×3 (00:43→09:45)
[2017-02-18 07:48] LABS: BASO % 0.4 % (0.0-2.0); EOS % 0.9 % (0.0-4.0); HEMATOCRIT 32.8 % (35.0-51.0); LYMPH # 0.6 K/uL (1.0-4.3); LYMPH % 16.7 % (20.0-40.0); MEAN CELL VOLUME 89.3 fL (80.0-94.0); MEAN CORPUSCULAR HEMOGLOBIN 29.8 pg (27.0-31.0); MEAN CORPUSCULAR HGB CONC 33.4 g/dL (33.0-37.0); MEAN PLATELET VOLUME 9.3 fL (7.2-11.7); MONO # 0.7 K/uL (0.0-0.8); MONO % 18.3 % (0.0-10.0); RED CELL DISTRIBUTION WIDTH 13.7 % (11.5-14.5); WHITE BLOOD COUNT 3.6 K/uL (4.8-10.8)
[2017-02-18 08:00] LABS: CHLORIDE 97 mmol/L (98-107); POTASSIUM 3.7 mmol/L (3.6-5.2); SODIUM 133 mmol/L (132-148)
[2017-02-18 08:02] LABS: GFR AFRICAN-AMERICAN > 60
[2017-02-18 08:03] LABS: ALB/GLOB RATIO 1.3 (1.0-2.1); ALKALINE PHOSPHATASE 53 U/L (38-126); ALT/SGPT 20 U/L (21-72); AST/SGOT 23 U/L (17-59); BILIRUBIN,TOTAL 0.6 mg/dL (0.2-1.3); BLOOD UREA NITROGEN 7 mg/dL (9-20); CARBON DIOXIDE 24 mmol/L (22-30); GLUCOSE,RANDOM 95 mg/dL (75-110); PHOSPHOROUS 3.1 mg/dL (2.5-4.5); TOTAL PROTEIN 5.4 g/dL (6.3-8.3)
--- NOTE | 2017-02-18 08:22 | CP.PCM.PN ---
Subjective - Date & Time of Evaluation Date of Evaluation: 02/18/17 Time of Evaluation: 07:00 - Subjective Subjective: Gen Surg: Dr. Gannon Pt S&E. Reports passing flatus and having BM. Denies n/v. Tolerating liquid diet. Issued no complaints, states he is feeling good. Will advance diet. Objective - Vital Signs/Intake and Output Vital Signs (last 24 hours): Temp Pulse Resp BP Pulse Ox 98.6 F 92 H 20 128/65 97 02/18/17 00:17 02/18/17 08:14 02/18/17 00:17 02/18/17 00:17 02/18/17 00:17 Intake and Output: 02/18/17 02/18/17 06:59 18:59 Intake Total 1100 1040 Balance 1100 1040 - Medications Medications: Current Medications Heparin Sodium (Porcine) (Heparin) 5,000 units SC Q8 [facility] Last Admin: 02/18/17 06:20 Dose: 5,000 units Hydralazine HCl (Apresoline) 10 mg IVP Q6H [facility] Last Admin: 02/18/17 06:43 Dose: Not Given Sodium Chloride (Sodium Chloride 0.9%) 1,000 mls @ 100 mls/hr IV .Q10H [facility] Last Admin: 02/18/17 06:21 Dose: 100 mls/hr Lisinopril (Zestril) 20 mg PO DAILY [facility] Metoclopramide HCl (Reglan) 10 mg IVP Q6H [facility] Last Admin: 02/18/17 06:20 Dose: 10 mg Morphine Sulfate (Morphine) 4 mg IVP Q4 PRN PRN Reason: Pain, moderate (4-7) Pantoprazole Sodium (Protonix Inj) 40 mg IVP DAILY [facility] Last Admin: 02/17/17 11:14 Dose: 40 mg Pneumococcal Polyvalent Vaccine (Pneumovax 23 Vaccine) 0.5 ml IM .ONCE ONE Stop: 02/18/17 10:01 - Labs Labs: 02/18/17 07:28 02/18/17 07:28 - Constitutional Appears: No Acute Distress - Head Exam Head Exam: NORMOCEPHALIC - Eye Exam Eye Exam: Normal appearance - ENT Exam ENT Exam: Mucous Membranes Moist - Respiratory Exam Respiratory Exam: NORMAL BREATHING PATTERN - Cardiovascular Exam Cardiovascular Exam: +S1, +S2 - GI/Abdominal Exam GI & Abdominal Exam: Soft. absent: Distended - Neurological Exam Neurological Exam: Alert, Awake, Oriented x3 - Psychiatric Exam Psychiatric exam: Normal Mood - Skin Skin Exam: Dry, Intact, Normal Color Assessment and Plan - Assessment and Plan (Free Text) Assessment: 86 y/o M w/ possible SBO likely 2/2 adhesions from radiation therapy vs surgery - Advance diet as tolerated - pain management - cont anti-emetic - NGT if N/V -Encourage ambulation Pt discussed w/ Dr. Gannon
[2017-02-18] MEDS ORDERED: Pneumococcal 23-Valent Vaccine IM ONE (10:00)
--- NOTE | 2017-02-18 15:16 | VASCLAB ---
PROCEDURE: Lower Extremity Venous Duplex Exam. HISTORY: Leg swelling PRIORS: None. TECHNIQUE: Bilateral common femoral, femoral, popliteal and posterior tibial, peroneal and great saphenous veins were evaluated. Flow was assessed with color Doppler, compressibility, assessment of phasic flow and augmentation response. Report prepared by NANCY Lynn, RVT FINDINGS: RIGHT: 1. Common Femoral Vein: 1.1. Compressibility - Fully compressible: Thrombus - None : Flow - Phasic: Augmentation -Normal: Reflux - None. 2. Femoral Vein: 2.1. Compressibility - Fully compressible: Thrombus - None : Flow - Phasic: Augmentation -Normal: Reflux - None. 3. Popliteal Vein: 3.1. Compressibility - Fully compressible: Thrombus - None : Flow - Phasic: Augmentation -Normal: Reflux - None. 4. Posterior Tibial Vein: 4.1. Compressibility - Fully compressible: Thrombus - None: Flow - Phasic: Augmentation -Normal: Reflux - None. 5. Peroneal Vein: 5.1. Compressibility - Fully compressible: Thrombus - None: Flow - Phasic: Augmentation -Normal: Reflux - None. 6. Great Saphenous Vein: 6.1. Compressibility - Fully compressible: Thrombus - None: Flow - Phasic: Augmentation - Normal: Reflux - None. LEFT: 1. Common Femoral Vein: 1.1. Compressibility - Fully compressible: Thrombus - None: Flow - Phasic: Augmentation -Normal: Reflux - None. 2. Femoral Vein: 2.1. Compressibility - Fully compressible: Thrombus - None: Flow - Phasic: Augmentation -Normal: Reflux - None. 3. Popliteal Vein: 3.1. Compressibility - Fully compressible: Thrombus - None : Flow - Phasic: Augmentation -Normal: Reflux - None. 4. Posterior Tibial Vein: 4.1. Compressibility - Fully compressible: Thrombus - None: Flow - Phasic: Augmentation -Normal: Reflux - None. 5. Peroneal Vein: 5.1. Compressibility - Fully compressible: Thrombus - None: Flow - Phasic: Augmentation -Normal: Reflux - None. 6. Great Saphenous Vein: 6.1. Compressibility - Fully compressible: Thrombus - None: Flow - Phasic: Augmentation - Normal: Reflux - None. OTHER FINDINGS: Right: None significant. Left: None significant. IMPRESSION: Right: No evidence of deep or superficial vein thrombosis of the right lower extremity. Normal valve function noted of the right side. Left: No evidence of deep or superficial vein thrombosis of the left lower extremity. Normal valve function noted of the left side.
[2017-02-18 16:56] VITALS: BP 130/57; PULSE 76; RESP 20; TEMP 98.2; O2SAT 99
--- NOTE | 2017-02-18 17:32 | CP.PCM.DIS ---
<Kristen Wilcox - Last Filed: 02/23/17 02:02> Provider - Provider Date of Admission: 02/16/17 13:23 Attending physician: Spencer Shaffer MD Primary care physician: In in the DR Consults: Dr. Gannon - surgery Time Spent in preparation of Discharge (in minutes): 35 Hospital Course - Lab Results Lab Results: Most Recent Lab Values WBC 3.6 K/uL (4.8-10.8) L 02/18/17 07:28 RBC 3.68 Mil/uL (4.40-5.90) L 02/18/17 07:28 Hgb 11.0 g/dL (12.0-18.0) L 02/18/17 07:28 Hct 32.8 % (35.0-51.0) L 02/18/17 07:28 MCV 89.3 fL (80.0-94.0) 02/18/17 07: MCH 29.8 pg (27.0-31.0) 02/18/17 07: MCHC 33.4 g/dL (33.0-37.0) 02/18/17 07:28 RDW 13.7 % (11.5-14.5) 02/18/17 07:28 Plt Count 144 K/uL (130-400) 02/18/17 07:28 MPV 9.3 fL (7.2-11.7) 02/18/17 07:28 Neut % (Auto) 63.7 % (50.0-75.0) 02/18/17 07: Lymph % (Auto) 16.7 % (20.0-40.0) L 02/18/17 07:28 [place] % (Auto) 18.3 % (0.0-10.0) H 02/18/17 07:28 Eos % (Auto) 0.9 % (0.0-4.0) 02/18/17 07:28 Baso % (Auto) 0.4 % (0.0-2.0) 02/18/17 07:28 Neut # 2.3 K/uL (1.8-7.0) 02/18/17 07:28 Lymph # 0.6 K/uL (1.0-4.3) L 02/18/17 07:28 [place] # 0.7 K/uL (0.0-0.8) 02/18/17 07:28 Eos # 0.0 K/uL (0.0-0.7) 02/18/17 07:28 Baso # 0.0 K/uL (0.0-0.2) 02/18/17 07:28 Neutrophils % (Manual) 69 % (50-75) 02/17/17 07:24 Band Neutrophils % 9 % (0-2) H 02/17/17 07:24 Lymphocytes % (Manual) 11 % (20-40) L 02/17/17 07:24 Reactive Lymphs % 2 % (0-0) H 02/16/17 13:49 Monocytes % (Manual) 9 % (0-10) 02/17/17 07:24 Eosinophils % (Manual) 2 % (0-4) 02/17/17 07:24 Toxic Granulation Present 02/17/17 07:24 Platelet Estimate Normal (NORMAL) 02/17/17 07:24 RBC Morphology Normal 02/17/17 07:24 D-Dimer, Quantitative < 200 ng/mlDDU (0-243) 02/16/17 19:15 Sodium 133 mmol/L (132-148) 02/18/17 07:28 Potassium 3.7 mmol/L (3.6-5.2) 02/18/17 07:28 Chloride 97 mmol/L (98-107) L 02/18/17 07:28 Carbon Dioxide 24 mmol/L (22-30) 02/18/17 07:28 Anion Gap 15 (10-20) 02/18/17 07:28 BUN 7 mg/dL (9-20) L 02/18/17 07:28 Creatinine 0.7 MG/DL (0.8-1.5) L 02/18/17 07:28 Est GFR ( Amer) > 60 02/18/17 07:28 Est GFR (Non-Af Amer) > 60 02/18/17 07:28 Random Glucose 95 mg/dL (75-110) 02/18/17 07:28 Hemoglobin A1c 5.9 % (4.2-6.5) 02/17/17 07:24 Calcium 8.0 mg/dl (8.6-10.4) L 02/18/17 07:28 Phosphorus 3.1 mg/dL (2.5-4.5) 02/18/17 07:28 Magnesium 2.0 mg/dL (1.6-2.3) 02/18/17 07:28 Total Bilirubin 0.6 mg/dL (0.2-1.3) 02/18/17 07:28 AST 23 U/L (17-59) 02/18/17 07:28 ALT 20 U/L (21-72) L 02/18/17 07:28 Alkaline Phosphatase 53 U/L (38-126) 02/18/17 07:28 Total Protein 5.4 g/dL (6.3-8.3) L 02/18/17 07:28 Albumin 3.0 g/dL (3.5-5.0) L 02/18/17 07:28 Globulin 2.4 gm/dL (2.2-3.9) 02/18/17 07:28 Albumin/Globulin Ratio 1.3 (1.0-2.1) 02/18/17 07:28 Lipase 34 U/L (23-300) 02/16/17 13:49 Alpha Fetoprotein 3.6 ng/mL (0.0-7.5) 02/17/17 07:24 Carcinoembryonic Ag 1.3 ng/mL (0-3.0) 02/17/17 07:24 CA 19-9 Antigen 24.7 U/mL (0-37) 02/17/17 07:24 CA 125 Antigen 10.0 U/mL (0-35) 02/17/17 07:24 Prostate Specific Ag 3.97 ng/mL (0.00-4.0) 02/17/17 07:24 Urine Color Yellow (YELLOW) 02/16/17 14:19 Urine Clarity Clear (Clear) 02/16/17 14:19 Urine pH 7.0 (5.0-8.0) 02/16/17 14:19 Ur Specific [place] 1.019 (1.003-1.030) 02/16/17 14:19 Urine Protein Negative mg/dL (NEGATIVE) 02/16/17 14:19 Urine Glucose (UA) Normal mg/dL (Normal) 02/16/17 14:19 Urine Ketones Trace mg/dL (NEGATIVE) 02/16/17 14:19 Urine Blood Negative (NEGATIVE) 02/16/17 14:19 Urine Nitrate Negative (NEGATIVE) 02/16/17 14:19 Urine Bilirubin Negative (NEGATIVE) 02/16/17 14:19 Urine Urobilinogen 2.0 mg/dL (0.2-1.0) 02/16/17 14:19 Ur Leukocyte Esterase Neg [place]/uL (Negative) 02/16/17 14:19 Urine WBC (Auto) 2 /hpf (0-5) 02/16/17 14:19 Urine RBC (Auto) < 1 /hpf (0-3) 02/16/17 14:19 Ur Squamous Epith Cells 3 /hpf (0-5) 02/16/17 14:19 - Hospital Course Hospital Course: On Admission: 86-year-old male, PMHx includes prostate ca [s/p radiation therapy 4 years ago] and HTN, presents to the emergency department with complaints of diffuse abdominal pain for the past four days. Pain is intermittent in nature, and described as "severe at times" at its worst a 10/ 10. Patient describes the pain as cramping and intermittent without radiation to the back and it started when he was lying down. He reports associated nausea and vomiting. He had nonbloody nonbilious emesis 3 x this morning. Patient reports tramadol 50mg makes the pain better and he cannot pinpoint any inciting factors. Patient has been seen in the DR 4 years ago for similar pain and was told he had "inflamed intestines". He also had an evaluation of his gallbladder 5-6 months ago which showed stones and his physician told him he needed surgery. Patient's last meal was yesterday at 4pm and he did not eat after that secondary to pain. Patient's last BM was this morning at 11am which was small but nonbloody and nonmelanotic. Patient has BMs every 3-4 days. [place] travelling from the and got [place] the [place]. Patient deneis any sick contacts. Patient denied any fever, chills, weakness, chest pain, palpitations, shortness of breath, cough. Patient is complaining headaches, dizziness, sore throat, abd pain, nausea, vomiting, urinary frequency, constipation, pain and numbness and tingling in his legs bilaterally and numbness in his penis when he walks, and weight loss. During Hospital Stay: CT Abdomen/Pelvis IV (02/16/17): findings suggesitve of small bowel obstruction. Moderately distended small bowel loops demonstrate enhancing thick wall. Distal small bowel loops are collapsed. Heterogenous enhance of the femoral veins larry on the left. Correlate clinically for possible DVT. Venous dopplers negative for thrombi. He was made NPO then the N/v and abdominal pain have resolved and his diet was advanced. He then had a BM during his stay. Risk factors: prior abdominal surgery, hx of bilateral inguinal hernias, and prostate cancer. Patient had a bowel movement this morning. Patient does not appear grossly distended. Surgery was consulted but symptoms improved and no surgical intervention was needed. Patient was given Lisinopril 20mg PO daily for BP control. Patient has prior history of prostate cancer. Had discontinued radiation for prostate cancer given side effects; patient reports became as low as 70 something pounds. Patient has not follow-up with urologist since nor had a follow-up PSA. Patient has only had radiation and reports prior shaving of the prostate [address] scan, mild to moderate enlarged prostate. He follows up with his doctor in the [facility]. He is here visitng family. Patient is stable to discharge home per surgery. Patient is to follow up with is primary care within 2 week of discharge. If he does not have [facility] here in the he is to follow up in the [facility] downstairs at [facility]. He will have to call to make an appointment. He is also to follow up with the surgeon, Dr. Gannon is symptoms return. If he experiences these symptoms again patient is to return to the emergency room. Patient is to continue his home meds. He was given a prescription for the blood pressure medication Lisinopril 20mg to be taken one by mouth daily. All instructions explained to the patient and his (who was present at bedside) and they agree. Discharge Exam - Head Exam Head Exam: NORMOCEPHALIC - Eye Exam Eye Exam: EOMI, Normal appearance, PERRL Pupil Exam: NORMAL ACCOMODATION - ENT Exam ENT Exam: Mucous Membranes Moist - Respiratory Exam Respiratory Exam: Clear to PA & Lateral, NORMAL BREATHING PATTERN, UNREMARKABLE. absent: Accessory Muscle Use, Chest Wall Tenderness, Rales, Rhonchi, Wheezes - Cardiovascular Exam Cardiovascular Exam: REGULAR RHYTHM, +S1, +S2 - GI/Abdominal Exam GI & Abdominal Exam: Normal Bowel Sounds, Soft. absent: Distended, Firm, Guarding, Tenderness - Extremities Exam Extremities exam: normal inspection - Back Exam Back exam: NORMAL INSPECTION. absent: CVA tenderness (L), CVA tenderness (R), paraspinal tenderness - Neurological Exam Neurological exam: Alert, CN II-XII Intact, Normal Gait, Oriented x3 - Psychiatric Exam Psychiatric exam: Normal Affect, Normal Mood - Skin Skin Exam: Dry, Intact, Normal Color, Warm Discharge Plan - Discharge Medications Prescriptions: Lisinopril [Zestril] 20 mg PO DAILY #30 tab - Follow Up Plan Condition: GOOD Disposition: HOME/ ROUTINE Instructions: Lisinopril (By mouth), Prostate Cancer (DC), Acute Abdominal Pain (DC), Bowel Obstruction (DC) Additional Instructions: Patient is stable to discharge home per surgery. Patient is to follow up with is primary care within 2 week of discharge. If he does not have a [facility] here in the he is to follow up in the [facility] downstairs at [facility]. He will have to call to make an appointment. He is also to follow up with the surgeon, Dr. Gannon is symptoms return. If he experiences these symptoms again patient is to return to the emergency room. Patient is to continue his home meds. He was given a prescription for the blood pressure medication Lisinopril 20mg to be taken one by mouth daily. All instructions explained to the patient and his (who was present at bedside) and they agree. Referrals: [facility] at [facility] [Outside] Garry Gannon MD [Staff Provider] - <Spencer Shaffer - Last Filed: 04/01/17 15:44> Provider - Provider Date of Admission: 02/16/17 13:23 Attending physician: Spencer Shaffer MD Hospital Course - Lab Results Lab Results: Most Recent Lab Values WBC 3.6 K/uL (4.8-10.8) L 02/18/17 07:28 RBC 3.68 Mil/uL (4.40-5.90) L 02/18/17 07:28 Hgb 11.0 g/dL (12.0-18.0) L 02/18/17 07:28 Hct 32.8 % (35.0-51.0) L 02/18/17 07:28 MCV 89.3 fL (80.0-94.0) 02/18/17 07:28 MCH 29.8 pg (27.0-31.0) 02/18/17 07: MCHC 33.4 g/dL (33.0-37.0) 02/18/17 07:28 RDW 13.7 % (11.5-14.5) 02/18/17 07:28 Plt Count 144 K/uL (130-400) 02/18/17 07:28 MPV 9.3 fL (7.2-11.7) 02/18/17 07:28 Neut % (Auto) 63.7 % (50.0-75.0) 02/18/17 07: Lymph % (Auto) 16.7 % (20.0-40.0) L 02/18/17 07:28 [place] % (Auto) 18.3 % (0.0-10.0) H 02/18/17 07:28 Eos % (Auto) 0.9 % (0.0-4.0) 02/18/17 07:28 Baso % (Auto) 0.4 % (0.0-2.0) 02/18/17 07:28 Neut # 2.3 K/uL (1.8-7.0) 02/18/17 07:28 Lymph # 0.6 K/uL (1.0-4.3) L 02/18/17 07:28 [place] # 0.7 K/uL (0.0-0.8) 02/18/17 07:28 Eos # 0.0 K/uL (0.0-0.7) 02/18/17 07:28 Baso # 0.0 K/uL (0.0-0.2) 02/18/17 07:28 Neutrophils % (Manual) 69 % (50-75) 02/17/17 07:24 Band Neutrophils % 9 % (0-2) H 02/17/17 07:24 Lymphocytes % (Manual) 11 % (20-40) L 02/17/17 07:24 Reactive Lymphs % 2 % (0-0) H 02/16/17 13:49 Monocytes % (Manual) 9 % (0-10) 02/17/17 07:24 Eosinophils % (Manual) 2 % (0-4) 02/17/17 07:24 Toxic Granulation Present 02/17/17 07:24 Platelet Estimate Normal (NORMAL) 02/17/17 07:24 RBC Morphology Normal 02/17/17 07:24 D-Dimer, Quantitative < 200 ng/mlDDU (0-243) 02/16/17 19:15 Sodium 133 mmol/L (132-148) 02/18/17 07:28 Potassium 3.7 mmol/L (3.6-5.2) 02/18/17 07:28 Chloride 97 mmol/L (98-107) L 02/18/17 07:28 Carbon Dioxide 24 mmol/L (22-30) 02/18/17 07:28 Anion Gap 15 (10-20) 02/18/17 07:28 BUN 7 mg/dL (9-20) L 02/18/17 07:28 Creatinine 0.7 MG/DL (0.8-1.5) L 02/18/17 07:28 Est GFR ( Amer) > 60 02/18/17 07:28 Est GFR (Non-Af Amer) > 60 02/18/17 07:28 Random Glucose 95 mg/dL (75-110) 02/18/17 07:28 Hemoglobin A1c 5.9 % (4.2-6.5) 02/17/17 07:24 Calcium 8.0 mg/dl (8.6-10.4) L 02/18/17 07:28 Phosphorus 3.1 mg/dL (2.5-4.5) 02/18/17 07:28 Magnesium 2.0 mg/dL (1.6-2.3) 02/18/17 07:28 Total Bilirubin 0.6 mg/dL (0.2-1.3) 02/18/17 07:28 AST 23 U/L (17-59) 02/18/17 07:28 ALT 20 U/L (21-72) L 02/18/17 07:28 Alkaline Phosphatase 53 U/L (38-126) 02/18/17 07:28 Total Protein 5.4 g/dL (6.3-8.3) L 02/18/17 07:28 Albumin 3.0 g/dL (3.5-5.0) L 02/18/17 07:28 Globulin 2.4 gm/dL (2.2-3.9) 02/18/17 07:28 Albumin/Globulin Ratio 1.3 (1.0-2.1) 02/18/17 07:28 Lipase 34 U/L (23-300) 02/16/17 13:49 Alpha Fetoprotein 3.6 ng/mL (0.0-7.5) 02/17/17 07:24 Carcinoembryonic Ag 1.3 ng/mL (0-3.0) 02/17/17 07:24 CA 19-9 Antigen 24.7 U/mL (0-37) 02/17/17 07:24 CA 125 Antigen 10.0 U/mL (0-35) 02/17/17 07:24 Prostate Specific Ag 3.97 ng/mL (0.00-4.0) 02/17/17 07:24 Urine Color Yellow (YELLOW) 02/16/17 14:19 Urine Clarity Clear (Clear) 02/16/17 14:19 Urine pH 7.0 (5.0-8.0) 02/16/17 14:19 Ur Specific [place] 1.019 (1.003-1.030) 02/16/17 14:19 Urine Protein Negative mg/dL (NEGATIVE) 02/16/17 14:19 Urine Glucose (UA) Normal mg/dL (Normal) 02/16/17 14:19 Urine Ketones Trace mg/dL (NEGATIVE) 02/16/17 14:19 Urine Blood Negative (NEGATIVE) 02/16/17 14:19 Urine Nitrate Negative (NEGATIVE) 02/16/17 14:19 Urine Bilirubin Negative (NEGATIVE) 02/16/17 14:19 Urine Urobilinogen 2.0 mg/dL (0.2-1.0) 02/16/17 14:19 Ur Leukocyte Esterase Neg [place]/uL (Negative) 02/16/17 14:19 Urine WBC (Auto) 2 /hpf (0-5) 02/16/17 14:19 Urine RBC (Auto) < 1 /hpf (0-3) 02/16/17 14:19 Ur Squamous Epith Cells 3 /hpf (0-5) 02/16/17 14:19 Attending/Attestation - Attestation I have personally seen and examined this patient.: Yes I have fully participated in the care of the patient.: Yes I have reviewed all pertinent clinical information, including history, physical exam and plan: Yes Notes (Text): Patient seen and examined with the resident. Agree with the resident's evaluation, assessment and plan. Patient had small bowel obstruction that resolved without surgical intervention.
== END 2017-02-18 18:15 | disposition home or self-care (01) ==
LOC: C.ER 12:19 → C.9OBSV 13:23 → C.9E 18:10 → C.3T 18:20
PROVIDERS: ADMIT Internal Medicine; ATTEND Internal Medicine
DX: R10.9 Unspecified abdominal pain (principal); I10 Essential (primary) hypertension; C61 Malignant neoplasm of prostate
CPT/HCPCS: 36415; 71010; 74177; 80053; 81001; 82105; 82378; 83036; 83690; 83735; 84100; 84153; 85025; 85378; 86301; 86304; 93970; 96361; 96372; 96374; 96375; 96376; 97116; 97162; 99285; C9113; G0378; G8978; G8979; J0360; J1644; J2270; J2405; J2765; J7040; Q9967